=== PATIENT | female | born 1975 | race Caucasian/White ===

== ENCOUNTER 2019-03-14 11:02 | Day surgery (SDC) | payer OTHER ==
[~2019-03-14] VITALS: Ht 162.6 cm; Wt 76.6 kg
[2019-03-14] VITALS (16 sets, daily range): BP systolic 111–131; BP diastolic 63–81; PULSE 52–81; RESP 12–22; Ht 162.6 cm; Wt 76.6 kg
[~2019-03-14 11:02] MED LIST: SOD CHLORIDE 0.9% 1,000 ML IV SCH
[2019-03-14] MEDS ORDERED: CEFAZOLIN 2 GM/50 ML (PMX) 50 ML IVPB SCH (12:00)
[2019-03-14] MEDS ORDERED: ONDANSETRON 4 MG INJ ONE (12:30)
[2019-03-14] MEDS ORDERED: PROPOFOL 200 MG INJ ONE (12:30)
[2019-03-14] MEDS ORDERED: DESFLURANE 15 MIN ONE (12:30)
[2019-03-14] MEDS ORDERED: ROPIVACAINE 0.5 % 30 ML VIAL ONE (12:30)
[2019-03-14] MEDS ORDERED: CEFAZOLIN 1 GM INJ ONE (12:30)
[2019-03-14] MEDS ORDERED: GLYCOPYRROLATE 0.4 MG INJ ONE (12:30)
[2019-03-14] MEDS ORDERED: FENTAnyl 250MCG INJ ONE (12:30)
[2019-03-14] MEDS ORDERED: LIDOCAINE 2% (SDV) 5 ML INJ ONE (12:30)
[2019-03-14] MEDS ORDERED: NEOSTIGMINE 3 MG/3 ML SYRINGE ONE (12:30)
[2019-03-14] MEDS ORDERED: INDIGOTINDISULFONATE 0.8% 5 ML INJ IV ONE (14:00)
--- NOTE | 2019-03-14 14:14 | PREAC ---
Date/Time of Note Date/Time of Note DATE: 03/14/19 TIME: 14:13 Anesthesia Eval and Record Evaluation Time Pre-Procedure Interview DATE: 03/14/19 TIME: 14:13 Age 43 Sex female NPO: 8 hrs Preoperative diagnosis gallstones Planned procedure lap choly Past Medical History Past Medical History: None Surgery & Anesthesia Issues No known issue Meds Anticoagulation: No Beta Elver within 24 hr: No Reason Beta Elver not given: Pt. not on B-Elver No Active Prescriptions or Reported Meds Current Medications Sodium Chloride 1,000 ml @ 75 mls/hr [id number] IV ; Start 03/14/19 at 06:30; Stop 03/14/19 at 20:00 Meds reviewed: Yes Allergies Coded Allergies: No Known Allergy (Unverified , 03/14/19) Allergies Reviewed: Yes Labs/Studies Labs Reviewed: Reviewed by anesthesiologist Result Diagram: 03/14/19 1141 03/14/19 1141 Laboratory Tests 03/14/19 11:41 test: Negative Pre-procedure Exam Last vitals Vital Signs Date Temp Pulse Resp B/P (MAP) Pulse Ox O2 O2 Flow FiO2 Time Delivery Rate 03/14/19 98.6 71 16 118/74 100 Room Air 12:08 (89) Airway: Adequate mouth opening, Adequate thyromental dist Mallampati: Mallampati III Teeth: Normal Lung: Normal Heart: Normal ASA Physical Status ASA physical status: 1 Emergency: None Pre-operative Attestations Prior to commencing anesthesia and surgery, the patient was re-evaluated, there was verification of: *The patient's identity *The results of appropriate recent lab work and preoperative vital signs *The above evaluation not changing prior to induction *Anesthetic plan, risk benefits, alternative and complications discussed with patient/family; questions answered; patient/family understands, accepts and wishes to proceed. MARLENY MONDRAGON DO Mar 14, 2019 14:14
[2019-03-14] MEDS ORDERED: HYDROmorphONE 1 MG/5 ML IV SYRINGE IV PRN ×2 (14:30)
--- NOTE | 2019-03-14 15:54 | OPR ---
Date/Time of Note Date/Time of Note DATE: 03/14/19 TIME: 15:48 Operative Report Procedure Date: Mar 14, 2019 Preoperative Diagnosis Cholelithiasis/chronic cholecystitis Postoperative Diagnosis Cholelithiasis/chronic cholecystitis Operation/Procedure Performed Laparoscopic cholecystectomy Surgeon see signature line Laboratory Technician None Anesthesia Type: general Anesthesiologist: MARLENY MONDRAGON DO Estimated Blood Loss: minimal Transfusion none Specimen Gallbladder Grafts/Implants none Complications none Pt Condition Post Procedure: stable Disposition: PACU Indications The patient is a 43-year-old female who presented to the office with a 6-month history of intermittent right upper quadrant abdominal pain. The patient had clinical signs and symptoms of chronic cholecystitis and biliary colic which was confirmed via a CT scan during an emergency room visit which showed the presence of gallstones. The patient was scheduled for laparoscopic cholecystectomy; possible open as definitive treatment to prevent further sequelae of gallstone disease which include but are not limited to: Gangrenous cholecystitis, choledocholithiasis, gallstone pancreatitis, ascending cholangitis, etc. All risks and benefits of the procedure including but not limited to: Wound infec tion, excessive bleeding, common bile duct injury, postoperative biliary leak, retained common bile duct stone, injury to intra-abdominal organs, conversion to open procedure, possible need for subsequent surgeries, etc. were all explained to the patient in full detail. She fully understood and wished to proceed with the procedure. Informed consent was therefore obtained. Procedure Description The patient was brought to the operating room and placed supine on the operating table. Bilateral sequential compression devices were placed on both lower extremities. A dose of broad-spectrum perioperative intravenous antibiotics was given. After the induction of smooth general endotracheal anesthesia the patient's abdomen was prepped and draped in the standard surgical fashion. After performance of the surgical timeout a 5 mm incision was made in the inferior umbilicus and a Veress needle was used to access the intra-abdominal cavity atraumatically. Pneumoperitoneum was then obtained and the Veress needle was exchanged for a 5 mm trocar through which a 5 mm laparoscope was placed. Three further working ports were then placed a 12 mm port in the sub-xiphoid region and two 5 mm ports in the right upper quadrant. All port sites were anesthetized with 0.2% lidocaine prior to incision. Using atraumatic graspers the gallbladder was grasped and retracted superiorly and laterally exposing the area of Moreira's pouch. Dissection was begun in this area using a combination of blunt dissection and hook electrocautery. The cystic duct was identified as it entered straight into the neck of the gallbladder. It was dissected free of surrounding tissues and clipped proximally and distally x 3 and transected using EndoShears. Dissection was then continued posteriorly. The cystic artery was identified and dissected free of surrounding tissues. It too was clipped proximally and distally x 3 and transected using EndoShears. The gallbladder was then dissected off the liver bed using electrocautery. Once completely free the gallbladder was placed in an Endo Catch bag and withdrawn through the subxiphoid port site and passed off the field as specimen. The subxiphoid port site had to be enlarged to accommodate the large stones within the gallbladder. Hemostasis was then i nspected for and noted to be total. The abdomen was then irrigated with several liters of warm normal saline and the irrigant returned crystal clear. Pneumoperitoneum was then released and all trochars were withdrawn under direct vision. The fascia of the subxiphoid port site was reapproximated using 0 Vicryl sutures in running fashion. The subcutaneous tissues were irrigated with more warm normal saline. The skin was then reapproximated using 4-0 Monocryl sutures in subcuticular fashion. The incisions were cleaned and Dermabond was applied to the incisions and the patient was awoken from anesthesia and transported to the recovery room in stable condition. A tap block was performed at the end of the procedure by the anesthesiologist and will be documented by him separately. All counts were correct at the end of the case x 2. RUBEN GONZALEZ MD Mar 14, 2019 15:54
[2019-03-14] MEDS ORDERED: HYDROCODONE/APAP (5/325) TAB PO PRN ×2 (16:00)
[2019-03-14] MEDS ORDERED: ONDANSETRON 4 MG INJ IV PRN (16:00)
[2019-03-14] MEDS ORDERED: morphine 2 MG INJ IV PRN (16:00)
[2019-03-14] MEDS ORDERED: IBUPROFEN 600 MG TAB PO PRN (16:00)
[2019-03-14] MEDS ORDERED: KETOROLAC 30 MG INJ IV PRN (16:00)
--- NOTE | 2019-03-14 16:08 | PAC ---
Date/Time of Note Date/Time of Note DATE: 03/14/19 TIME: 16:07 Post-Anesthesia Notes Post-Anesthesia Note Last documented vital signs Vital Signs Date Temp Pulse Resp B/P (MAP) Pulse Ox O2 O2 Flow FiO2 Time Delivery Rate 03/14/19 98 80 16 120/65 100 Room Air 1608 Activity: WNL Respiratory function: WNL Cardiovascular function: WNL Mental status: Baseline Pain reasonably controlled: Yes Hydration appropriate: Yes Nausea/Vomiting absent: Yes MARLENY MONDRAGON DO Mar 14, 2019 16:08
[2019-03-14] MEDS: HYDROmorphONE 1 MG/5 ML IV SYRINGE IV PRN ×2 (16:24→16:35)
== END 2019-03-14 18:10 | disposition home or self-care (01) ==
LOC: SDS 11:02
PROVIDERS: ATTEND Surgery
DX: K80.10 Calculus of gallbladder with chronic cholecystitis without obstruction (principal)
CPT/HCPCS: 47562; 80053; 85025; 85610; 85730; 88304; J0690; J1170; J1885; J2405; J2710; J2795; J3010